=== PATIENT | female | born 1975 | race Caucasian/White ===

== ENCOUNTER 2017-08-19 05:06 | Inpatient (IN) | payer BC ==
[2017-08-09 10:12] VITALS: BMI 31.0
--- NOTE | 2017-08-09 10:32 | PAT Medication Instructions ---
Service Date Aug 09, 2017. Current Home Medication List Desipramine HCl (Desipramine HCl), 25 MG PO BID Medication Instructions For Your Scheduled Surgery - Take the following medications the morning of surgery with a sip of water: Desipramine HCl (Desipramine HCl), 25 MG PO BID - Take the following medications as scheduled the night before surgery: Desipramine HCl (Desipramine HCl), 25 MG PO BID If you have any questions please call us at [phone] or [phone] or [phone]
[2017-08-09 11:39] LABS: BASO ABS # 0.08 K/uL (0-0.2); BASOPHIL % 0.9 %; COMPLETE YES; EOSINOPHIL % 1.7 %; HEMATOCRIT 39.8 % (37-47); LYMPH ABS # 3.04 K/uL (1.2-3.4); LYMPHOCYTE % 34.8 %; MEAN CELL VOLUME 92.1 fL (80-100); MEAN CORPUSCULAR HEMOGLOBIN 31.3 pg (25-34); MEAN CORPUSCULAR HGB CONC 33.9 g/dl (32-36); MEAN PLATELET VOLUME 8.9 fL (7.4-10.4); NEUTROPHILS % 61.7 %; PLATELET COUNT 214 K/uL (130-400); RED BLOOD COUNT 4.32 M/uL (4.2-5.4); WHITE BLOOD COUNT 8.73 K/uL (4.8-10.8)
[~2017-08-19] VITALS: Ht 165.1 cm; Wt 85.1 kg
[2017-08-19] VITALS (8 sets, daily range): BP systolic 99–119; BP diastolic 63–75; PULSE 91–108; TEMP 36.5–37.3; O2SAT 97–99; Ht 165.1 cm; Wt 85.1 kg
[~2017-08-19 05:06] MED LIST: DSP25 PO
[2017-08-19] MEDS ORDERED: IBUP-103 PO (05:51)
[2017-08-19] MEDS ORDERED: LACTATED RINGER'S 1000ML 1,000 ML IV SCH (06:00)
[2017-08-19] MEDS ORDERED: CEFOXITIN IV 2,000 MG in DEXTROSE 5% 50ML 50 ML IV SCH (06:00)
[2017-08-19] MEDS ORDERED: BUPIVACAINE 0.5 % 5 MG/1 ML MPF 30ML VIAL ONE (06:50)
--- NOTE | 2017-08-19 06:51 | History & Physical Bridge Note ---
H&P Re-Evaluation Bridge Note: I have examined the patient, reviewed the History & Physical and in the interval since the performance of the History & Physical I have noted the following changes of clinical significance: No changes noted
[2017-08-19] MEDS ORDERED: LIDOCAINE 2% 20 MG/ML 5ML SYR IV ONE (06:52)
[2017-08-19] MEDS ORDERED: ROCURONIUM BROMIDE 10 MG/ML 5 ML VIAL IV ONE ×2 (06:52→08:55)
[2017-08-19] MEDS ORDERED: PROPOFOL IV EMULSION 10 MG/ML 20 ML VIAL IV ONE (06:52)
[2017-08-19] MEDS ORDERED: FENTANYL CITRATE INJ 50 MCG/1 ML 2 ML VIAL ONE ×2 (06:52→08:40)
[2017-08-19] MEDS ORDERED: MIDAZOLAM HCL 1 MG/ML 2ML VIAL ONE (06:52)
[2017-08-19] MEDS ORDERED: GLYCOPYRROLATE INJ 0.2 MG/ML VIAL ONE (07:52)
[2017-08-19] MEDS ORDERED: PHENYLEPHRINE 100MCG/ML 5ML SYR ONE (07:52)
[2017-08-19] MEDS ORDERED: DEXAMETHASONE SOD INJ 4 MG/ML VIAL ONE (07:52)
[2017-08-19] MEDS ORDERED: ONDANSETRON INJ 2 MG/ML 2 ML VIAL ONE (07:52)
[2017-08-19] MEDS ORDERED: NEOSTIGMINE METHYLSULFATE 5 MG/5 ML SYR ONE (07:52)
[2017-08-19] MEDS ORDERED: PHENYLEPHRINE 100MCG/ML 5ML SYR IV PRN (08:00)
[2017-08-19] MEDS ORDERED: ATROPINE SULFATE 0.1 MG/ML 5ML SYR IV PRN (08:00)
[2017-08-19] MEDS ORDERED: EpHEDrine SULFATE INJ 50 MG/ML AMP IV PRN (08:00)
[2017-08-19] MEDS ORDERED: ONDANSETRON INJ 2 MG/ML 2 ML VIAL IV PRN (08:00)
[2017-08-19] MEDS ORDERED: HYDROmorphone INJ 2 MG/ML SYR/VIAL ONE (09:33)
[2017-08-19] MEDS ORDERED: NALOXONE HCL 0.4 MG/1 ML VIAL/CARP IV PRN (11:30)
[2017-08-19] MEDS: HYDROmorphone INJ 2 MG/ML SYR/VIAL IV PRN ×4 (11:30→11:45)
--- NOTE | 2017-08-19 11:32 | Anesthesiology Progress Note ---
Anesthesia Post Op Note Date & Time Aug 19, 2017 at 11:32 Vital Signs Pain Intensity: 0 Vital Signs Past 12 Hours Date Time Temp Pulse Resp B/P (MAP) Pulse Ox O2 Delivery O2 Flow Rate FiO2 08/19/17 11:20 76 18 125/86 100 Oxymask 10 08/19/17 11:10 71 20 126/73 100 Oxymask 10 08/19/17 11:02 37.5 82 16 132/82 100 Oxymask 10 08/19/17 05:37 36.5 93 20 119/75 99 Room Air Notes Mental Status: alert / awake / arousable, participated in evaluation Pt Amnestic to Procedure: Yes Nausea / Vomiting: adequately controlled Pain: adequately controlled Airway Patency, RR, SpO2: stable & adequate BP & HR: stable & adequate Hydration State: stable & adequate Anesthetic Complications: no major complications apparent
--- NOTE | 2017-08-19 11:38 | [facility] Post Operative Brief Note ---
Immediate Operative Summary Operative Date Aug 19, 2017. Pre-Operative Diagnosis Diverticulosis Post-Operative Diagnosis Same Procedure(s) Performed Laparoscopic Assisted Sigmoid Resection Surgeon Dr Beck Machine Operator Slitter Technician Surgeon(s) Penelope Hanna PA-C Estimated Blood Loss 40ml Findings See dictation Specimens A: Portion of ovarian cyst wall B. Sigmoid colon with donut holes Drains None Anesthesia General Complication(s) None Disposition Recovery Room / PACU
[2017-08-19] MEDS ORDERED: HYDROmorphone HCL 0.5MG/ML 50 ML CASSETTE ONE (11:46)
[2017-08-19] MEDS ORDERED: HYDROmorphone INJ 1 MG/ML SYR ONE (11:55)
[2017-08-19] MEDS: SODIUM CHLORIDE 0.9% 1000ML 1,000 ML IV SCH (14:04)
[2017-08-19] MEDS: D5W AND 1/2NSS + 20MEQ KCL 1,000 ML IV SCH ×2 (14:33→22:20)
[2017-08-19 14:39] LABS: PROTHROMBIN TIME (PATIENT) 10.7 SECONDS (9.0-12.0)
[2017-08-19] MEDS: HYDROmorphone HCL 0.5MG/ML 50 ML CASSETTE IV PRN ×2 (15:01→22:50)
[2017-08-19 15:19] LABS: CREATININE 0.76 mg/dl (0.60-1.20)
[2017-08-19] MEDS: CEFOXITIN IV 2,000 MG in DEXTROSE 5% 50ML 50 ML IV SCH ×2 (16:27→23:56)
--- NOTE | 2017-08-19 16:37 | OPERATIVE REPORT ---
DATE OF OPERATION: 08/19/2017 PREOPERATIVE DIAGNOSIS: History of recurrent diverticulitis. POSTOPERATIVE DIAGNOSIS: Same. PROCEDURE: Laparoscopic assisted sigmoid colectomy. SURGEON: Dr. Beck. TRICK RODEO RIDER: Penelope Cross, PAC FINDINGS: The sigmoid colon was redundant. There were multiple diverticula present. There were no diverticula identified above the anastomosis. There was no evidence of abscess formation. There was also a cyst of the left ovary. A right ovary appeared normal. There was no abnormality of the remaining area of the colon. The terminal ileum was identified and inspected and appeared normal. There was no fat creeping. DESCRIPTION OF PROCEDURE: The patient was given a general anesthetic and the area was prepped and draped in usual sterile fashion. A small vertical incision was made just below the umbilicus, carried down through the subcutaneous tissue to the fascia which was grasped with 2 Damon clamps and incised between. The peritoneum was identified, incised, and the introducer was placed bluntly. The abdomen was then insufflated to a pressure of 15 mmHg with carbon dioxide. The 2 left-sided 5 mm introducers were placed under direct vision through small skin incisions. A third 5 mm introducer was placed through the left lower quadrant. Traction was placed medially on the sigmoid colon proximally and also the distal descending colon and the peritoneum was opened at the line of Toldt. The peritoneal attachment was then divided working proximally along the descending colon up towards the splenic flexure. I was then able to divide the splenocolic ligament using the LigaSure as well. This was performed along the length of the undersurface of the spleen and the distal transverse colon as well. Further mesenteric flimsy attachments were divided laterally and then up around the splenic flexure, mobilizing the splenic flexure completely. I then worked down along the sigmoid colon and freed the lateral attachments there and that mobilized the sigmoid colon. The mobilization of those tissues was done with relative ease. The gas was allowed to escape and the introducers were removed and a vertical incision was then extended inferiorly towards the pubic bone. It was carried through the length of the incision. The sigmoid colon was then able to be mobilized and brought out. The Bookwalter retractor was placed. Further division of the lateral attachments on the left side of the sigmoid was performed. I then worked inferiorly and there was an adhesion of the vaginal cuff and minimally bladder to the anterior wall of the rectum and these attachments were taken down to at least 5 cm below the sacral promontory. It was at this point that the left ovarian cyst which measured approximately 4 cm was identified. This was opened and drained. A portion of the wall was taken and sent for pathology. The most proximal diverticula was felt was identified. The mesentery was away from the wall of the colon and at that point, the colon was divided using the MIS stapler. The mesentery of the sigmoid colon was then divided using the LigaSure as well as a clamp-clamp, divide, and ligate technique for the larger vessels ligating with 2-0 Vicryl. This was carried down to the sacral promontory and then into the hollow of the sacrum until I was at an area of the rectum where no longer were there tenia. A site for division of that was chosen and the mesentery and the lateral stalks were divided. I then used the TA stapler to amputate the specimen and send it for pathology. Hemostasis was then obtained using electrocautery. The proximal staple line was then identified and removed. There were 2 other diverticulitis within a centimeter that and the bowel wall was opened through those diverticulitis. The bowel was then sized and a 25 EEA was chosen. The anvil was placed intraluminally in the proximal portion and the bowel was closed and stapled using the TA stapler. The redundant bowel was removed. The staple line was confirmed to contain serosa around the entire circumference. The trocar on the anvil was then used to protrude it through the right colon wall just anterior to the staple line. The anus was then dilated. The dilator was then passed through the anal opening and passed with ease up to the distal staple line. The stapler was then passed in a similar fashion. The trocar protruded through the distal bowel wall just posterior to the staple line. The anvil was attached and the anvil was then withdrawn making sure that there was no tissue intervening in between the 2 ends of the bowel. The staple was secured until the green was seen in the window and fired. It was opened and the stapler was removed. The donuts were inspected and were intact. The bowel was occluded manually superior to the staple line and air was injected. There was no bubbling through irrigation that had been placed in the pelvis. The pelvis was irrigated and irrigation was removed. The position of the NG tube was confirmed to be in good place. The fascia of the vertical midline incision was closed with #1 PDS. The skin of all the incisions was then closed with bakari. The estimated blood loss was 40 mL. Sponge, needle and instrument counts were correct x2 prior to closure. The patient tolerated the surgical procedure without complication. The incisions were anesthetized with 0.5% Marcaine. She was transferred to the recovery room. I attest to the content of the Intraoperative Record and any orders documented therein. Any exception s are noted below.
[2017-08-20] VITALS (9 sets, daily range): BP systolic 95–110; BP diastolic 61–70; PULSE 93–124; TEMP 36.6–38; O2SAT 88–99
[2017-08-20] MEDS: D5W AND 1/2NSS + 20MEQ KCL 1,000 ML IV SCH ×3 (05:20→22:18)
[2017-08-20 06:31] LABS: BASO % 0.1 %; BASO ABS # 0.01 K/uL (0-0.2); COMPLETE YES; HEMATOCRIT 33.6 % (37-47); IG% 0.5 %; LYMPH % 9.8 %; LYMPH ABS # 1.73 K/uL (1.2-3.4); MEAN CELL VOLUME 94.1 fL (80-100); MEAN CORPUSCULAR HEMOGLOBIN 31.1 pg (25-34); MEAN PLATELET VOLUME 8.9 fL (7.4-10.4); MONO % 9.7 %; NEUT % 79.9 %; PLATELET COUNT 196 K/uL (130-400); RED BLOOD COUNT 3.57 M/uL (4.2-5.4); WHITE BLOOD COUNT 17.68 K/uL (4.8-10.8)
[2017-08-20 06:59] LABS: BUN/CREATININE RATIO 19.4 (10-20); CALCIUM 7.9 mg/dl (8.5-10.1); CREATININE 0.72 mg/dl (0.60-1.20); POTASSIUM 4.1 mmol/L (3.5-5.1)
[2017-08-20] MEDS: HYDROmorphone HCL 0.5MG/ML 50 ML CASSETTE IV PRN ×3 (07:10→22:57)
[2017-08-20] MEDS: CEFOXITIN IV 2,000 MG in DEXTROSE 5% 50ML 50 ML IV SCH (08:23)
--- NOTE | 2017-08-20 10:04 | Anesthesiology Progress Note ---
Anesthesia Post Op Note Date & Time Aug 20, 2017 at 10:04 Vital Signs Vital Signs Past 12 Hours Date Time Temp Pulse Resp B/P (MAP) Pulse Ox O2 Delivery O2 Flow Rate FiO2 08/20/17 09:57 96 Room Air 08/20/17 07:30 94 Room Air 08/20/17 07:26 36.6 93 20 100/62 (75) 88 Room Air 08/20/17 03:28 36.9 99 14 99/63 (75) 95 Room Air 08/20/17 00:00 Nasal Cannula 1.0 08/20/17 00:00 99 Nasal Cannula 1.0 08/19/17 23:12 37.3 94 18 100/63 (75) 98 Nasal Cannula 3.0 Notes Mental Status: alert / awake / arousable, participated in evaluation Pt Amnestic to Procedure: Yes Nausea / Vomiting: adequately controlled Pain: adequately controlled Airway Patency, RR, SpO2: stable & adequate BP & HR: stable & adequate Hydration State: stable & adequate Anesthetic Complications: no major complications apparent
[2017-08-20] MEDS: SODIUM CHLORIDE 0.9% 1000ML 1,000 ML IV SCH (11:13)
[2017-08-20] MEDS: ENOXAPARIN 40 MG/0.4 ML SYR SQ SCH (11:24)
--- NOTE | 2017-08-20 15:57 | Surgery Progress Note ---
Surgery Progress Note Date of Service Aug 20, 2017. Subjective Post OP Day: 1 No bowel movement, No flatus, No nausea, No vomiting Feels tired Not out of bed today Objective Vital Signs: Date Time Temp Pulse Resp B/P (MAP) Pulse Ox O2 Delivery O2 Flow Rate FiO2 08/20/17 11:28 36.9 98 16 95/61 (72) 97 Room Air 08/20/17 09:57 96 Room Air 08/20/17 07:30 94 Room Air 08/20/17 07:26 36.6 93 20 100/62 (75) 88 Room Air 08/20/17 03:28 36.9 99 14 99/63 (75) 95 Room Air 08/20/17 00:00 Nasal Cannula 1.0 08/20/17 00:00 99 Nasal Cannula 1.0 08/19/17 23:12 37.3 94 18 100/63 (75) 98 Nasal Cannula 3.0 08/19/17 19:00 36.6 98 18 104/65 (78) 98 Nasal Cannula 3.0 Physical Exam: urine output (good) Abdomen: non distended, soft Incision(s): clean, dry, intact, no erythema, no drainage Laboratory Results: Results Past 24 Hours Test 08/20/17 05:52 Range/Units White Blood Count 17.68 4.8-10.8 K/uL Red Blood Count 3.57 4.2-5.4 M/uL Hemoglobin 11.1 12.0-16.0 g/dL Hematocrit 33.6 37-47 % Mean Corpuscular Volume 94.1 80-100 fL Mean Corpuscular Hemoglobin 31.1 25-34 pg Mean Corpuscular Hemoglobin Concent 33.0 32-36 g/dl Platelet Count 196 130-400 K/uL Mean Platelet Volume 8.9 7.4-10.4 fL Neutrophils (%) (Auto) 79.9 % Lymphocytes (%) (Auto) 9.8 % Monocytes (%) (Auto) 9.7 % Eosinophils (%) (Auto) 0.0 % Basophils (%) (Auto) 0.1 % Neutrophils # (Auto) 14.15 1.4-6.5 K/uL Lymphocytes # (Auto) 1.73 1.2-3.4 K/uL Monocytes # (Auto) 1.71 0.11-0.59 K/uL Eosinophils # (Auto) 0.00 0-0.5 K/uL Basophils # (Auto) 0.01 0-0.2 K/uL RDW Standard Deviation 45.5 36.4-46.3 fL RDW Coefficient of Variation 13.2 11.5-14.5 % Immature Granulocyte % (Auto) 0.5 % Immature Granulocyte # (Auto) 0.08 0.00-0.02 K/uL Sodium Level 140 136-145 mmol/L Potassium Level 4.1 3.5-5.1 mmol/L Chloride Level 106 98-107 mmol/L Carbon Dioxide Level 29 21-32 mmol/L Anion Gap 5.0 3-11 mmol/L Blood Urea Nitrogen 14 7-18 mg/dl Creatinine 0.72 0.60-1.20 mg/dl Est Creatinine Clear Calc Drug Dose 108.5 ml/min Estimated GFR () 118.9 Estimated GFR (Non- 102.6 BUN/Creatinine Ratio 19.4 10-20 Random Glucose 127 70-99 mg/dl Calcium Level 7.9 8.5-10.1 mg/dl Assessment & Plan S/P laparoscopic assisted sigmoid colectomy Needs to ge OOB Monitor analgesia use Continue NGT for now
[2017-08-20 16:28] LABS: HEMATOCRIT 33.5 % (37-47); MEAN CELL VOLUME 94.9 fL (80-100); MEAN CORPUSCULAR HEMOGLOBIN 31.7 pg (25-34); MEAN PLATELET VOLUME 8.9 fL (7.4-10.4); PLATELET COUNT 172 K/uL (130-400); RED BLOOD COUNT 3.53 M/uL (4.2-5.4); WHITE BLOOD COUNT 16.56 K/uL (4.8-10.8)
[2017-08-20 16:38] LABS: MEAN CORPUSCULAR HGB CONC 33.4 g/dl (32-36)
[2017-08-21] VITALS (8 sets, daily range): BP systolic 103–118; BP diastolic 67–79; PULSE 79–115; TEMP 36.6–37.5; O2SAT 93–99
[2017-08-21 05:46] LABS: BASO % 0.3 %; BASO ABS # 0.04 K/uL (0-0.2); COMPLETE YES; EOS % 0.3 %; IG% 0.8 %; LYMPH % 15.5 %; LYMPH ABS # 2.28 K/uL (1.2-3.4); MEAN CELL VOLUME 94.7 fL (80-100); MEAN CORPUSCULAR HEMOGLOBIN 30.9 pg (25-34); MEAN CORPUSCULAR HGB CONC 32.6 g/dl (32-36); MEAN PLATELET VOLUME 8.6 fL (7.4-10.4); MONO % 9.9 %; NEUT % 73.2 %; PLATELET COUNT 182 K/uL (130-400); RED BLOOD COUNT 3.59 M/uL (4.2-5.4); WHITE BLOOD COUNT 14.72 K/uL (4.8-10.8)
[2017-08-21] MEDS: D5W AND 1/2NSS + 20MEQ KCL 1,000 ML IV SCH ×3 (06:05→22:17)
[2017-08-21 06:24] LABS: BUN/CREATININE RATIO 14.4 (10-20); CALCIUM 7.9 mg/dl (8.5-10.1); CREATININE 0.6 mg/dl (0.60-1.20)
--- NOTE | 2017-08-21 06:50 | Surgery Progress Note ---
Surgery Progress Note Date of Service Aug 21, 2017. Subjective Post OP Day: 2 + ambulating (Was OOB this AM), No bowel movement, No flatus, No nausea, No vomiting More awake and alert this AM Objective Vital Signs: Date Time Temp Pulse Resp B/P (MAP) Pulse Ox O2 Delivery O2 Flow Rate FiO2 08/21/17 06:17 102 94 Room Air 08/21/17 03:21 36.8 107 16 107/67 (80) 96 Nasal Cannula 2.0 08/21/17 01:10 112 97 Nasal Cannula 2.0 08/20/17 23:50 Room Air 08/20/17 23:22 36.8 122 14 110/70 (83) 90 Room Air 08/20/17 19:01 38.0 118 18 98/61 (73) 95 Room Air 08/20/17 15:57 37.2 124 18 100/62 (75) 95 Room Air 08/20/17 15:42 Room Air 08/20/17 11:28 36.9 98 16 95/61 (72) 97 Room Air 08/20/17 09:57 96 Room Air 08/20/17 07:30 94 Room Air 08/20/17 07:26 36.6 93 20 100/62 (75) 88 Room Air Physical Exam: nasogastric drainage (900 cc yesterday) Abdomen: non distended, soft, + tenderness (minimal) Incision(s): clean, dry, intact, no erythema, no drainage Laboratory Results: Results Past 24 Hours Test 08/20/17 16:13 08/21/17 05:24 Range/Units White Blood Count 16.56 14.72 4.8-10.8 K/uL Red Blood Count 3.53 3.59 4.2-5.4 M/uL Hemoglobin 11.2 11.1 12.0-16.0 g/dL Hematocrit 33.5 34.0 37-47 % Mean Corpuscular Volume 94.9 94.7 80-100 fL Mean Corpuscular Hemoglobin 31.7 30.9 25-34 pg Mean Corpuscular Hemoglobin Concent 33.4 32.6 32-36 g/dl RDW Standard Deviation 45.9 45.6 36.4-46.3 fL RDW Coefficient of Variation 13.3 13.2 11.5-14.5 % Platelet Count 172 182 130-400 K/uL Mean Platelet Volume 8.9 8.6 7.4-10.4 fL Neutrophils (%) (Auto) 73.2 % Lymphocytes (%) (Auto) 15.5 % Monocytes (%) (Auto) 9.9 % Eosinophils (%) (Auto) 0.3 % Basophils (%) (Auto) 0.3 % Neutrophils # (Auto) 10.78 1.4-6.5 K/uL Lymphocytes # (Auto) 2.28 1.2-3.4 K/uL Monocytes # (Auto) 1.45 0.11-0.59 K/uL Eosinophils # (Auto) 0.05 0-0.5 K/uL Basophils # (Auto) 0.04 0-0.2 K/uL Immature Granulocyte % (Auto) 0.8 % Immature Granulocyte # (Auto) 0.12 0.00-0.02 K/uL Sodium Level 137 136-145 mmol/L Potassium Level 4.0 3.5-5.1 mmol/L Chloride Level 105 98-107 mmol/L Carbon Dioxide Level 27 21-32 mmol/L Anion Gap 5.0 3-11 mmol/L Blood Urea Nitrogen 9 7-18 mg/dl Creatinine 0.60 0.60-1.20 mg/dl Est Creatinine Clear Calc Drug Dose 130.2 ml/min Estimated GFR () 129.4 Estimated GFR (Non- 111.6 BUN/Creatinine Ratio 14.4 10-20 Random Glucose 114 70-99 mg/dl Calcium Level 7.9 8.5-10.1 mg/dl Assessment & Plan S/P laparoscopic assisted sigmoid colectomy Now getting OOB, need to continue H&H stable WBC decreasing HR down, had temp of 38 with increased HR yesterday Continue NGT for now
[2017-08-21] MEDS: HYDROmorphone HCL 0.5MG/ML 50 ML CASSETTE IV PRN ×3 (07:01→23:10)
[2017-08-21] MEDS: SODIUM CHLORIDE 0.9% 1000ML 1,000 ML IV SCH (11:29)
[2017-08-21] MEDS: ENOXAPARIN 40 MG/0.4 ML SYR SQ SCH (11:31)
[2017-08-21] MEDS ORDERED: COUGH DROP (SUGAR FREE) LOZ 24 LOZ/1 BOX PO PRN (18:15)
[2017-08-22] MEDS: HYDROmorphone HCL 0.5MG/ML 50 ML CASSETTE IV PRN ×4 (01:06→23:07)
[2017-08-22 03:19] VITALS: BP 113/77; PULSE 113; TEMP 37; O2SAT 92
[2017-08-22] MEDS: D5W AND 1/2NSS + 20MEQ KCL 1,000 ML IV SCH ×3 (05:38→22:08)
[2017-08-22 07:03] VITALS: BP 106/69; PULSE 99; TEMP 36.6; O2SAT 92
--- NOTE | 2017-08-22 07:42 | Surgery Progress Note ---
Surgery Progress Note Date of Service Aug 22, 2017. Subjective Post OP Day: 3 + flatus, + nausea (mild), No bowel movement, No vomiting Objective Vital Signs: Date Time Temp Pulse Resp B/P (MAP) Pulse Ox O2 Delivery O2 Flow Rate FiO2 08/22/17 07:03 36.6 99 16 106/69 (81) 92 Room Air 08/22/17 03:19 37.0 113 16 113/77 (89) 92 Room Air 08/21/17 23:45 Room Air 08/21/17 23:40 36.6 115 16 115/75 (88) 94 Room Air 08/21/17 19:31 37.0 110 16 118/73 (88) 94 Room Air 08/21/17 15:30 Room Air 08/21/17 15:20 37.0 105 16 103/67 (79) 99 Room Air 08/21/17 11:15 36.9 79 16 108/79 (89) 96 Room Air 08/21/17 07:40 Room Air Abdomen: non distended, soft, + tenderness (incisional only) Incision(s): clean, dry, intact, no erythema, no drainage Laboratory Results: Results Past 24 Hours Test 08/22/17 07:31 08/22/17 07:34 Range/Units Assessment & Plan S/P laparoscopic assisted sigmoid colectomy Now getting OOB, need to ambulate Recheck CBC No fever Passing flatus bu mild nausea, encouraged clear liquids
[2017-08-22 08:00] LABS: BASO % 0.4 %; BASO ABS # 0.04 K/uL (0-0.2); COMPLETE YES; EOS % 2.5 %; HEMATOCRIT 32.8 % (37-47); IG% 1.5 %; LYMPH % 21.9 %; LYMPH ABS # 2.09 K/uL (1.2-3.4); MEAN CELL VOLUME 93.4 fL (80-100); MEAN CORPUSCULAR HEMOGLOBIN 31.3 pg (25-34); MEAN CORPUSCULAR HGB CONC 33.5 g/dl (32-36); MEAN PLATELET VOLUME 8.8 fL (7.4-10.4); MONO % 8.5 %; NEUT % 65.2 %; PLATELET COUNT 188 K/uL (130-400); RED BLOOD COUNT 3.51 M/uL (4.2-5.4); WHITE BLOOD COUNT 9.54 K/uL (4.8-10.8)
[2017-08-22 08:19] LABS: BUN/CREATININE RATIO 14.8 (10-20); CALCIUM 8.2 mg/dl (8.5-10.1); CREATININE 0.54 mg/dl (0.60-1.20); POTASSIUM 4.2 mmol/L (3.5-5.1)
[2017-08-22] MEDS: SODIUM CHLORIDE 0.9% 1000ML 1,000 ML IV SCH (10:07)
[2017-08-22 11:40] VITALS: BP 118/81; PULSE 89; TEMP 36.6; O2SAT 97
[2017-08-22] MEDS: ENOXAPARIN 40 MG/0.4 ML SYR SQ SCH (12:32)
[2017-08-22 15:10] VITALS: BP 113/78; PULSE 94; TEMP 36.8; O2SAT 96
[2017-08-22 20:50] VITALS: BP 117/77; PULSE 97; TEMP 36.8; O2SAT 95
[2017-08-22 23:15] VITALS: BP 101/70; PULSE 96; TEMP 36.8; O2SAT 95
[2017-08-23 03:01] VITALS: BP 115/77; PULSE 93; TEMP 36.6; O2SAT 95
[2017-08-23] MEDS: D5W AND 1/2NSS + 20MEQ KCL 1,000 ML IV SCH ×2 (05:45→17:37)
[2017-08-23 06:46] LABS: BASO % 0.4 %; BASO ABS # 0.03 K/uL (0-0.2); COMPLETE YES; EOS % 4.2 %; HEMATOCRIT 32.4 % (37-47); IG% 2.3 %; LYMPH % 27.6 %; LYMPH ABS # 2.05 K/uL (1.2-3.4); MEAN CELL VOLUME 92.8 fL (80-100); MEAN CORPUSCULAR HEMOGLOBIN 31.2 pg (25-34); MEAN CORPUSCULAR HGB CONC 33.6 g/dl (32-36); MEAN PLATELET VOLUME 8.7 fL (7.4-10.4); MONO % 9.2 %; NEUT % 56.3 %; PLATELET COUNT 212 K/uL (130-400); RED BLOOD COUNT 3.49 M/uL (4.2-5.4); WHITE BLOOD COUNT 7.43 K/uL (4.8-10.8)
[2017-08-23 07:06] VITALS: BP 114/76; PULSE 90; TEMP 36.4; O2SAT 96
[2017-08-23] MEDS: HYDROmorphone HCL 0.5MG/ML 50 ML CASSETTE IV PRN (07:08)
--- NOTE | 2017-08-23 07:34 | Surgery Progress Note ---
Surgery Progress Note Date of Service Aug 23, 2017. Subjective + flatus, + diet (Not taking much PO), No bowel movement, No nausea, No vomiting Objective Vital Signs: Date Time Temp Pulse Resp B/P (MAP) Pulse Ox O2 Delivery O2 Flow Rate FiO2 08/23/17 07:14 Room Air 08/23/17 07:06 36.4 90 17 114/76 (89) 96 Room Air 08/23/17 03:01 36.6 93 16 115/77 (90) 95 Room Air 08/23/17 00:00 Room Air 08/22/17 23:15 36.8 96 16 101/70 (80) 95 Room Air 08/22/17 20:50 36.8 97 16 117/77 (90) 95 Room Air 08/22/17 16:30 Room Air 08/22/17 15:10 36.8 94 16 113/78 (90) 96 Room Air 08/22/17 11:40 36.6 89 16 118/81 (93) 97 Room Air 08/22/17 10:49 Room Air Abdomen: normal bowel sounds, non distended, soft, + tenderness (Incisional only) Incision(s): clean, dry, intact, no erythema, no drainage Laboratory Results: Results Past 24 Hours Test 08/22/17 07:42 08/23/17 05:56 Range/Units White Blood Count 9.54 7.43 4.8-10.8 K/uL Red Blood Count 3.51 3.49 4.2-5.4 M/uL Hemoglobin 11.0 10.9 12.0-16.0 g/dL Hematocrit 32.8 32.4 37-47 % Mean Corpuscular Volume 93.4 92.8 80-100 fL Mean Corpuscular Hemoglobin 31.3 31.2 25-34 pg Mean Corpuscular Hemoglobin Concent 33.5 33.6 32-36 g/dl Platelet Count 188 212 130-400 K/uL Mean Platelet Volume 8.8 8.7 7.4-10.4 fL Neutrophils (%) (Auto) 65.2 56.3 % Lymphocytes (%) (Auto) 21.9 27.6 % Monocytes (%) (Auto) 8.5 9.2 % Eosinophils (%) (Auto) 2.5 4.2 % Basophils (%) (Auto) 0.4 0.4 % Neutrophils # (Auto) 6.22 4.19 1.4-6.5 K/uL Lymphocytes # (Auto) 2.09 2.05 1.2-3.4 K/uL Monocytes # (Auto) 0.81 0.68 0.11-0.59 K/uL Eosinophils # (Auto) 0.24 0.31 0-0.5 K/uL Basophils # (Auto) 0.04 0.03 0-0.2 K/uL RDW Standard Deviation 43.7 43.5 36.4-46.3 fL RDW Coefficient of Variation 12.8 12.9 11.5-14.5 % Immature Granulocyte % (Auto) 1.5 2.3 % Immature Granulocyte # (Auto) 0.14 0.17 0.00-0.02 K/uL Sodium Level 137 136-145 mmol/L Potassium Level 4.2 3.5-5.1 mmol/L Chloride Level 107 98-107 mmol/L Carbon Dioxide Level 25 21-32 mmol/L Anion Gap 5.0 3-11 mmol/L Blood Urea Nitrogen 8 7-18 mg/dl Creatinine 0.54 0.60-1.20 mg/dl Est Creatinine Clear Calc Drug Dose 144.7 ml/min Estimated GFR () 134.0 Estimated GFR (Non- 115.6 BUN/Creatinine Ratio 14.8 10-20 Random Glucose 107 70-99 mg/dl Calcium Level 8.2 8.5-10.1 mg/dl Assessment & Plan S/P laparoscopic assisted sigmoid colectomy Now getting OOB, need to ambulate more H&H stable WBC normal No fever Passing flatus but mild nausea, advance to full liquids Decrease IV rate
--- NOTE | 2017-08-23 07:38 | Discharge Instructions ---
Discharge Instructions Date of Service Aug 23, 2017. Admission Reason for Admission: History Of Diverticulitis Of Colon Discharge Discharge Diagnosis / Problem: Same Discharge Goals Goal(s): Decrease discomfort, Improve disease control Activity Recommendations Activity Limitations: per Instructions/Follow-up section Lifting Limitations: no more than 10 pounds (for 6 weeks) Shower/Bathe: no limitations (on showering, no bathing) Driving or Machine Use: None froo 2 weeks . Instructions / Follow-Up Instructions / Follow-Up Post-Surgical ~ Discharge Instructions Activity Recommendations: - lifting limitation: (10 pounds for 6 weeks), - exercise/sex/sports limit: (nonstrenuous for 6 weeks), - driving or machine use limit: (none for 2 weeks), - Shower/bathe limit: (march shower) Diet: - Resume previous diet SPECIAL CARE INSTRUCTIONS: - May shower. Let water run over area and pat dry. - Call office to be seen on Saturday to have bakari removed - Call the surgeon's office with any questions or concerns - - (ex. temperature higher than 101 degrees F, excessive bleeding or pain). MEDICATIONS: - Resume previous medications unless instructed otherwise by your surgeon. - Ibuprofen 600 mg every 6 hours with food - Percocet 1 every 4 hours, as needed for pain FOLLOW UP VISIT: - If not already scheduled, please call the office to schedule a two week follow-up appointment. Office number Current Hospital Diet Patient's current hospital diet: Clear Liquid Diet Discharge Diet Recommended Diet: Low Fiber Diet Procedures Procedures Performed: Laparoscopic Assisted Sigmoid Resection Pending Studies Studies pending at discharge: no Medical Emergencies . Who to Call and When: Medical Emergencies: If at any time you feel your situation is an emergency, please call 911 immediately. . Non-Emergent Contact Non-Emergency issues call your: Primary Care Provider, Surgeon Call Non-Emergent contact if: your pain is worsening, wound has increased drainage, wound has increased redness . "Provider Documentation" section prepared by Prasanna Beck. . VTE Core Measure Inpt VTE Proph given/why not?: Enoxaparin (Lovenox)SQ
[2017-08-23] MEDS: ENOXAPARIN 40 MG/0.4 ML SYR SQ SCH (10:57)
[2017-08-23 15:45] VITALS: BP 98/71; PULSE 93; TEMP 36.4; O2SAT 96
[2017-08-23] MEDS: ONDANSETRON INJ 2 MG/ML 2 ML VIAL IV PRN (20:42)
[2017-08-23 22:55] VITALS: BP 118/83; PULSE 91; TEMP 36.5; O2SAT 96
[2017-08-24] MEDS: ONDANSETRON INJ 2 MG/ML 2 ML VIAL IV PRN ×2 (02:51→19:45)
[2017-08-24] MEDS: D5W AND 1/2NSS + 20MEQ KCL 1,000 ML IV SCH ×2 (05:38→17:45)
[2017-08-24 07:01] VITALS: BP 114/77; PULSE 88; TEMP 37.1; O2SAT 94
--- NOTE | 2017-08-24 08:46 | Surgery Progress Note ---
Surgery Progress Note Date of Service Aug 24, 2017. Subjective Post OP Day: 5 mild nausea this AM. panchito liquids. no bowel fx yet Objective Vital Signs: Date Time Temp Pulse Resp B/P (MAP) Pulse Ox O2 Delivery O2 Flow Rate FiO2 08/24/17 08:03 Room Air 08/24/17 07:01 37.1 88 17 114/77 (89) 94 Room Air 08/24/17 00:05 Room Air 08/23/17 22:55 36.5 91 16 118/83 (95) 96 Room Air 08/23/17 15:50 Room Air 08/23/17 15:45 36.4 93 16 98/71 (80) 96 Room Air General Appearance: no apparent distress Abdomen: non distended, soft, + pertinent finding (expected incisional tenderness) Incision(s): clean, dry, intact, no erythema Laboratory Results: Results Past 24 Hours Test 08/24/17 07:50 Range/Units 08/24/17 POD 5 doing ok. awaiting bowel fx increase activity no acute post op issues.
[2017-08-24 09:10] LABS: BASO % 0.4 %; BASO ABS # 0.04 K/uL (0-0.2); COMPLETE YES; EOS % 2.7 %; HEMATOCRIT 38.1 % (37-47); IG% 2.1 %; LYMPH % 18.3 %; LYMPH ABS # 1.74 K/uL (1.2-3.4); MEAN CELL VOLUME 91.6 fL (80-100); MEAN CORPUSCULAR HEMOGLOBIN 31.5 pg (25-34); MEAN CORPUSCULAR HGB CONC 34.4 g/dl (32-36); MEAN PLATELET VOLUME 8.8 fL (7.4-10.4); NEUT % 68.5 %; PLATELET COUNT 292 K/uL (130-400); RED BLOOD COUNT 4.16 M/uL (4.2-5.4); WHITE BLOOD COUNT 9.52 K/uL (4.8-10.8)
[2017-08-24] MEDS: ENOXAPARIN 40 MG/0.4 ML SYR SQ SCH (13:56)
[2017-08-24 15:13] VITALS: BP 112/75; PULSE 97; TEMP 37; O2SAT 98
[2017-08-24 20:00] VITALS: O2SAT 98
[2017-08-24 23:20] VITALS: BP 105/74; PULSE 85; TEMP 37.2; O2SAT 98
[2017-08-25] MEDS: D5W AND 1/2NSS + 20MEQ KCL 1,000 ML IV SCH (05:31)
[2017-08-25] MEDS: ONDANSETRON INJ 2 MG/ML 2 ML VIAL IV PRN (05:34)
[2017-08-25] MEDS: OXYCODONE/ACETAMINOPHEN 5-325 TAB PO PRN ×2 (06:24→07:14)
[2017-08-25 07:13] VITALS: BP 107/75; PULSE 85; TEMP 36.8; O2SAT 97
[2017-08-25] MEDS ORDERED: NURSING VERBAL MED ORDER ONE (08:45)
[2017-08-25] MEDS ORDERED: HYDR-5688 PO (09:03)
[2017-08-25] MEDS: HYDROCODONE/ACETAMOPHEN 5/325MG TAB PO PRN ×2 (09:21→13:43)
--- NOTE | 2017-08-25 10:12 | Surgery Progress Note ---
Surgery Progress Note Date of Service Aug 25, 2017. Subjective + feeling well, + bowel movement feeling well. panchito diet. +BM. would like to go home Objective Vital Signs: Date Time Temp Pulse Resp B/P (MAP) Pulse Ox O2 Delivery O2 Flow Rate FiO2 08/25/17 07:13 36.8 85 16 107/75 (86) 97 Room Air 08/25/17 07:10 Room Air 08/25/17 00:00 Room Air 08/24/17 23:20 37.2 85 16 105/74 (84) 98 Room Air 85 08/24/17 20:00 98 Room Air 08/24/17 15:25 Room Air 08/24/17 15:13 37.0 97 17 112/75 (87) 98 Room Air General Appearance: no apparent distress Abdomen: non distended, soft Incision(s): clean, dry, intact Assessment & Plan 08/25/17 doing well pain controlled +BM panchito diet ok for d/c. instructions given changed her percocet to hydrocodone b/c she cannot swallow the percocet but can the norco b/c of pill shape
[2017-08-25] MEDS: ENOXAPARIN 40 MG/0.4 ML SYR SQ SCH (11:30)
[2017-08-25 11:33] VITALS: BP 107/75; PULSE 85; TEMP 36.8; O2SAT 97
--- NOTE | 2017-08-26 15:23 | Discharge Summary ---
Discharge Summary Dates Admission Date / Time: Aug 19, 2017 at 11:37 Discharge Date: Aug 25, 2017 Dispostion / Condition Discharge Disposition: Home Condition at Discharge: Good Principal Diagnosis (1) Hx of diverticulitis of colon Consultations / Procedures Consultations: None Procedures: Laparoscopic assisted sigmoid resection with primary anastomosis Pending Studies / Follow-Up Pathology of colon resection and ovarian cyst- will be reviewed at follow-up visit Medication Reconciliation New Medications: Hydrocodone/Acetaminophen 5MG/325MG ([place] 5MG/325MG) Tab 1-2 TABLET PO Q4H PRN for Pain, #40 TAB Continued Medications: Desipramine HCl (Desipramine HCl) 25 Mg Tab 25 MG PO BID Ibuprofen Tab (Advil) 200 Mg Tab 400 MG PO, TAB Admission HPI Per the Admitting provider: Patient has a history of recurrent diverticulitis of the sigmoid colon. She was scheduled for sigmoid resection on an elective basis with Dr. Beck. She presented to [facility] for proposed procedure on 2016. Hospital Course (1) S/P laparoscopic-assisted sigmoidectomy Patient was taken to operating room for laparoscopic assisted sigmoid colectomy with primary anastomosis by Dr. Beck. Patient tolerated procedure well without any complications. She was transferred to recovery in stable condition. She as then transferred to medical/surgical floor for post operative care. She was started on IV fluids, IV pain medication as needed in form of Morphine, IV Zofran as needed, kept NPO, NGT to LIS, Whitaker to [place], and activity of bed rest. POD # 1 patient was doing well, vitals stable however not doing much activity and not out of bed. Her wbc was elevated at 16.56K. No changes were made. POD # 2 she was OOB to chair and WBC improved to 14.72K, again no changes. POD # 3 had some flatus but some nausea. Leukocytosis resolved. Diet advanced to clear liquids. POD # 4 nausea persisted. Not taking in much liquids. Diet was advanced to full liquids and IV fluid rate was decreased. Oral pain medication was started as needed. POD # 5, mild nausea persisted, no bowel movement as of yet. POD # 6 patient had a bowel movement, tolerating oral intake and pain controlled. She was discharged home in stable condition on POD # 6. Discharge Instructions as given to patient Copies To Primary Care Provider: Srinivas Charles M.D..
== END 2017-08-25 14:00 | disposition home or self-care (01) | DRG 331 ==
LOC: C.ACU 05:06 → C.MSN 11:37 → ENRESERV 11:48
PROVIDERS: ADMIT Surgery; ATTEND Surgery
PROC: 0DTN0ZZ Resection of Sigmoid Colon, Open Approach (ICD-10-PCS; principal; 2017-08-19 07:00)
DX: K57.92 Diverticulitis of intestine, part unspecified, without perforation or abscess without bleeding (principal); Z87.19 Personal history of other diseases of the digestive system